=== PATIENT | female | born 1965 | race Caucasian/White ===

== ENCOUNTER 2017-07-14 20:34 | Emergency (ER) | payer BC, OTHER ==
[~2017-07-14] VITALS: Ht 177.8 cm; Wt 80.0 kg
[~2017-07-14 20:34] MED LIST: NAPR-576 PO; Z.0.NO CURRENT MEDS
[2017-07-14 20:36] VITALS: BP 143/75; PULSE 82; RESP 16; TEMP 98.2; O2SAT 99
[2017-07-14] MEDS ORDERED: CEPHALEXIN MONOHYDRATE 500 MG CAP PO ONE (21:30)
[2017-07-14] MEDS ORDERED: SULFAMETHOXAZOLE-TRIMETHOPRIM DS 800-160 MG TAB PO ONE (21:30)
[2017-07-14] MEDS ORDERED: TETANUS/DIPHTHERIA TOXOID ADULT 0.5 ML VIAL IM ONE (21:30)
--- NOTE | 2017-07-14 21:35 | PD ---
HPI Chief Complaint: Injury Time Seen by Provider: 21:24 Travel History International Travel<30 days: No Contact w/Intl Traveler<30days: No Traveled to known affect area: No History of Present Illness HPI 51-year-old female presents for evaluation of right foot pain. She reports that she developed a blister secondary to her shoes about 5 days ago. At some point the blister ruptured and 4 days ago she hit her foot against a table leg. She's been having pain and redness of the dorsal right foot since then. The pain is an aching pain is worse with palpation. She has been attempting to keep the blister clean. Last tetanus vaccination unknown. Denies fever or chills. No other complaints. PFSH Past Medical History Diabetes: Yes Patient Takes Glucophage: No Diminished Hearing: No Tetanus Vaccination: < 5 Years Influenza Vaccination: No ?: Not LMP: current Tubal Ligation: Yes Past Surgical History Cholecystectomy: Yes Social History Alcohol Use: Yes (rare) Tobacco Use: Yes (PPD) Substance Use: No Allergies-Medications (Allergen,Severity, Reaction): Coded Allergies: No Known Allergies (Verified , 07/14/17) Reported Meds & Prescriptions Reported Meds & Active Scripts Active Keflex (Cephalexin) 500 Mg Cap 500 Mg PO Q8H Bactrim DS (Sulfamethoxazole-Trimethoprim) 800-160 Mg Tab 1 Tab PO BID Review of Systems Except as stated in HPI: all other systems reviewed are Neg Physical Exam Narrative GENERAL: Well-developed well-nourished female in no acute distress SKIN: Warm and dry. Ruptured blister noted on the dorsal aspect of the right third toe. There is some surrounding erythema on the dorsal aspect of the right third toe and mid foot. No induration, fluctuance or drainage. CARDIOVASCULAR: Regular rate and rhythm. No murmur appreciated. RESPIRATORY: No accessory muscle use. Clear to auscultation. Breath sounds equal bilaterally. MUSCULOSKELETAL: Skin as noted above with slight tenderness to palpation to the dorsal right midfoot. 2+ dorsalis pedis and posterior tibial pulses. NEUROLOGICAL: Awake and alert. No obvious cranial nerve deficits. Motor grossly within normal limits. Normal speech. Data Data Last Documented VS Vital Signs Date Time Temp Pulse Resp B/P Pulse Ox O2 Delivery O2 Flow Rate FiO2 07/14/17 20:36 98.2 82 16 143/75 99 Orders Foot, Complete (Gun3sui) (07/14/17 ) Tetanus/Diphtheria Tox Adult (Tetanus/Di (07/14/17 21:30) Wound Care (07/14/17 21:29) Sulfamet-Trimeth Ds 800-160 Mg (Bactrim (07/14/17 21:30) Cephalexin (Keflex) (07/14/17 21:30) MDM Medical Decision Making Medical Screen Exam Complete: Yes Emergency Medical Condition: Yes Medical Record Reviewed: Yes Interpretation(s) Right foot x-ray no acute abnormalities Differential Diagnosis Blister, cellulitis, erysipelas, lymphangitis, contusion, fracture Narrative Course Examination reveals a blister on the dorsal right third foot with some resultant cellulitic changes. An x-ray will be performed given her history of trauma to the foot. Wound care will be provided. Tetanus status updated. Bactrim and Keflex initiated. X-ray imaging reveals no acute abnormalities. The patient is stable for discharge. Diagnosis Primary Impression: Cellulitis of right foot Additional Instructions: Antibiotics as prescribed. Wash the wound with soap and water and apply antibiotic cream daily. Return for any emergent medical conditions. Med/Other Pt SpecificInfo: Prescription(s) given Scripts Cephalexin (Keflex)500 Mg Nou883 Mg PO Q8H #30 CAP Ref 0 Prov:Gregorio Garcia MD 07/14/17 Sulfamethoxazole-Trimethoprim (Bactrim DS)800-160 Mg Tab1 Tab PO BID #20 TAB Ref 0 Prov:Gregorio Garcia MD 07/14/17 Disposition: 01 DISCHARGE HOME Condition: Stable Otis Rizzo Jul 14, 2017 21:35
--- NOTE | 2017-07-14 22:02 | RADRPT ---
EXAM DATE/TIME: 07/14/2017 21:30 [facility] COMPARISON: No previous studies available for comparison. INDICATIONS : Right foot injury, possible infection on 3rd digit. MEDICAL HISTORY : None. SURGICAL HISTORY : None. ENCOUNTER: Initial ACUITY: 3 days PAIN SCORE: 5/10 LOCATION: Right foot FINDINGS: Three view examination of the right foot demonstrates no soft tissue swelling, dislocation, or fractu re. The tarsal bones appear intact. The interphalangeal and metatarsophalangeal joints are intact. The calcaneus is intact. Bony mineralization is normal. CONCLUSION: No fracture or perceptible bone destruction. Kyle Fierro MD on July 14, 2017 at 22:00 Board Certified Radiologist. This report was verified electronically.
[2017-07-14] MEDS ORDERED: CEPH-460 PO (22:14)
[2017-07-14] MEDS ORDERED: BACT800T5 PO (22:14)
== END 2017-07-14 22:37 | disposition home or self-care (01) ==
LOC: NEPD 20:34
DX: L03.115 Cellulitis of right lower limb (principal); E11.9 Type 2 diabetes mellitus without complications; F17.290 Nicotine dependence, other tobacco product, uncomplicated; Z23 Encounter for immunization
CPT/HCPCS: 73630; 90471; 90714